=== PATIENT | male | born 1960 | race African-American/Black ===

== ENCOUNTER 2018-06-21 10:50 | Day surgery (SDC) | payer BC, OTHER ==
[2018-06-18 14:40] VITALS: BMI 36.1
[2018-06-21] MEDS ORDERED: PROPOFOL 20 ML ONE ×2 (11:51)
[2018-06-21] MEDS ORDERED: LIDOCAINE HCL/PF 2% SDV 5ML VIAL ONE (11:59)
[2018-06-21 12:39] VITALS: TEMP 98
[2018-06-21 13:13] VITALS: BP 142/81; PULSE 65
--- NOTE | 2018-06-24 15:47 | PATH ---
Surgical Pathology Report Patient Name: MARILOU DU [facility]. Rec. #: [id number] /Age/Gender: 1960 (Age: 57) / M Account: [id number] Location: [facility] Taken: 06/21/2018 Received: 06/21/2018 Reported: 06/24/2018 Physicians: Jey Penn M.D. Specimen(s) Received A: BX DUODENUM B: BX ANTRUM Clinical History Epigastric pain, history of polyps Postoperative diagnosis: Gastritis Final Diagnosis A. DUODENUM, BIOPSY: DUODENAL MUCOSA WITH NO PATHOLOGIC FINDINGS. B. ANTRUM, BIOPSY: MILD CHRONIC GASTRITIS. IMMUNOSTAIN IS NEGATIVE FOR H. PYLORI ORGANISMS. Electronically Signed Rabia Hinkle M.D. Gross Description A. Received in formalin, labeled "duodenum biopsy" are 2 yin, irregular portions of soft tissue averaging 0.2 cm. in greatest dimension. The specimens are submitted in toto in one cassette. B. Received in formalin, labeled "antrum biopsy" are 2 yin, irregular portions of soft tissue measuring 0.3 and 0.4 cm. in greatest dimension. The specimens are submitted in toto in one cassette. /06/22/201806/22/2018
== END 2018-06-21 13:15 | disposition home or self-care (01) ==
LOC: FASU-ENDO 10:50
PROVIDERS: ATTEND Internal Medicine Gastroenterology
PROC: 0DB98ZX Excision of Duodenum, Via Natural or Artificial Opening Endoscopic, Diagnostic (ICD-10-PCS; 2018-06-21)
PROC: 0DB68ZX Excision of Stomach, Via Natural or Artificial Opening Endoscopic, Diagnostic (ICD-10-PCS; 2018-06-21)
PROC: 0DJD8ZZ Inspection of Lower Intestinal Tract, Via Natural or Artificial Opening Endoscopic (ICD-10-PCS; principal; 2018-06-21 12:02)
DX: Z86.010 Personal history of colon polyps (principal); K29.50 Unspecified chronic gastritis without bleeding; R10.13 Epigastric pain
CPT/HCPCS: 88305-TC; 88342-TC